=== PATIENT | female | born 1940 | race Hispanic/Latino ===

== ENCOUNTER 2017-08-22 09:01 | Day surgery (SDC) | payer MEDICARE ==
[2017-08-21 08:37] VITALS: BMI 36.6
[2017-08-22] MEDS ORDERED: Sodium Chloride 0.9% 1,000 ML IV SCH (11:15)
[2017-08-22] MEDS ORDERED: Propofol 10 mg/ml Inj (20 ML) ONE ×2 (11:18→12:19)
[2017-08-22] MEDS ORDERED: Midazolam 2 MG/2 ML VIAL ONE (11:19)
[2017-08-22] MEDS ORDERED: Albuterol HFA 90 mcg/actuation (8 g) ONE (11:19)
[2017-08-22] MEDS ORDERED: ePHEDrine 50 mg/ml Inj ONE (12:10)
[2017-08-22 14:10] VITALS: BP 123/59; PULSE 68; RESP 20; TEMP 97.7
[2017-08-22 14:11] VITALS: O2SAT 96
== END 2017-08-22 14:54 | disposition home or self-care (01) ==
LOC: ENDO 09:01
PROVIDERS: ATTEND Internal Medicine
DX: D12.2 Benign neoplasm of ascending colon (principal); D12.4 Benign neoplasm of descending colon; D12.7 Benign neoplasm of rectosigmoid junction; D12.5 Benign neoplasm of sigmoid colon; D12.3 Benign neoplasm of transverse colon; K62.1 Rectal polyp; K57.30 Diverticulosis of large intestine without perforation or abscess without bleeding; K64.8 Other hemorrhoids; K63.3 Ulcer of intestine; K55.20 Angiodysplasia of colon without hemorrhage; Z12.11 Encounter for screening for malignant neoplasm of colon; J44.9 Chronic obstructive pulmonary disease, unspecified; I10 Essential (primary) hypertension; E78.5 Hyperlipidemia, unspecified; F17.210 Nicotine dependence, cigarettes, uncomplicated; D50.9 Iron deficiency anemia, unspecified; R19.5 Other fecal abnormalities; K29.50 Unspecified chronic gastritis without bleeding; K52.9 Noninfective gastroenteritis and colitis, unspecified
CPT/HCPCS: 43239; 45380; 45381; 45385; 88305; 88342; J2001; J2250; J2704; J3010; J7040 ×2

== ENCOUNTER 2018-11-24 06:23 | Emergency (ER) | payer MEDICARE, OTHER | END 2018-11-24 11:39 | disposition home or self-care (01) | LOC: ED 06:23 ==